=== PATIENT | male | born 1945 | race Caucasian/White ===

== ENCOUNTER → 2016-08-28 | Outpatient (CLI) | payer OTHER ==
[~2016-08-28] MED LIST: CLON1TAB3 PO; DILT360C16 PO; METO25TA62 PO
[2016-08-28 15:52] LABS: INR 3.3 (0.7-1.3); Prothrombin Time 39.7 sec (9.0-12.0)
== END | disposition home or self-care (01) ==
LOC: EDSTATUS 09:51 → XYW 09:52
PROVIDERS: ATTEND Family Medicine
DX: I08.3 Combined rheumatic disorders of mitral, aortic and tricuspid valves (principal)
CPT/HCPCS: 85610; 93306

== ENCOUNTER → 2016-11-29 | Outpatient (CLI) | payer OTHER, MEDICARE ==
[2016-11-29 09:48] LABS: Basophils # (auto) 0 uL; Basophils % (auto) 0.2 % (0.0-2.0); CONDITION Y; Eosinophils # (auto) 0.1 uL; Eosinophils % (auto) 1.2 % (0.0-7.0); Lymphocytes # (auto) 1.3 uL; Lymphocytes % (auto) 10.7 % (10.0-50.0); Mean Corpuscular Hemoglobin 29.7 pg (28.0-32.0); Mean Corpuscular Volume 87.2 fL (80.0-100.0); Mean Platelet Volume 7.9 fL (7.4-10.4); Monocytes # (auto) 0.6 uL; Monocytes % (auto) 4.9 % (0.0-12.0); Platelet Count (auto) 438 10^3/uL (140-450); Red Cell Distribution Width 16.8 % (11.6-16.0)
[2016-11-29 09:53] LABS: Urine Bilirubin Negative (Negative); Urine Blood Negative /uL (Negative); Urine Color Yellow (Yellow); Urine Glucose Normal (Normal); Urine Ketone Negative (Negative); Urine Nitrite Negative (Negative); Urine RBC <1 /hpf (0 - 3); Urine Urobilinogen Normal (Negative)
[2016-11-29 10:27] LABS: BUN/Creatinine Ratio 19.2; Bilirubin, Total 1.8 mg/dL (0.2-1.0); Potassium 4.3 mmol/L (3.5-5.1); Total Protein 7.2 g/dL (6.4-8.2)
[2016-11-30 10:09] LABS: PSA Free 1.16 ng/mL; Prostate Specific Antigen 6.7 ng/mL (0.0-4.0)
== END | disposition home or self-care (01) ==
LOC: LAB 09:27
PROVIDERS: ATTEND Family Medicine
DX: E78.5 Hyperlipidemia, unspecified (principal); I11.0 Hypertensive heart disease with heart failure; I50.9 Heart failure, unspecified; M10.9 Gout, unspecified; E55.9 Vitamin D deficiency, unspecified; I48.91 Unspecified atrial fibrillation
CPT/HCPCS: 36415; 80053; 80061; 81001; 82306; 84153; 84154; 84550; 85025

== ENCOUNTER → 2017-02-14 | Outpatient (CLI) | payer OTHER ==
[2017-02-15 08:06] LABS: PSA Free 1.05 ng/mL; Prostate Specific Antigen 6.1 ng/mL (0.0-4.0)
== END | disposition home or self-care (01) ==
LOC: LAB 10:40
PROVIDERS: ATTEND Urology
DX: I10 Essential (primary) hypertension (principal); R97.20 Elevated prostate specific antigen [PSA]
CPT/HCPCS: 84153; 84154

== ENCOUNTER → 2017-09-19 | Outpatient (CLI) | payer OTHER | END | disposition home or self-care (01) | LOC: LAB 09:29 | PROVIDERS: ATTEND Urology | DX: R97.20 Elevated prostate specific antigen [PSA] (principal); R35.1 Nocturia | CPT/HCPCS: 84153; 84154 ==

== ENCOUNTER → 2017-11-18 | Outpatient (CLI) | payer OTHER ==
[~2017-11-18] MED LIST changes: +ASPI325T4 PO; -CLON1TAB3 PO; +CLON1TAB4 PO; +FEBU40TA PO; +GLUC750T29 PO; +METO-169 PO
[2017-11-18 11:30] LABS: Prothrombin Time 10.7 sec (9.27-12.13)
[2017-11-18 13:04] LABS: BUN/Creatinine Ratio 21.5; Bilirubin, Total 1.7 mg/dL (0.2-1.0); Calcium 9.1 mg/dL (8.5-10.1); Potassium 4.7 mmol/L (3.5-5.1); Total Protein 7.9 g/dL (6.4-8.2)
[2017-11-18 13:45] LABS: Basophils # (auto) 0.2 uL; Basophils % (auto) 1.9 % (0.0-2.0); Eosinophils # (auto) 0.1 uL; Hematocrit 46.7 % (41.0-53.0); Lymphocytes # (auto) 1.1 uL; Lymphocytes % (auto) 8.7 % (10.0-50.0); Mean Corpuscular Hemoglobin 29.8 pg (28.0-32.0); Mean Corpuscular Hgb Conc. 34.2 g/dL (32.0-36.0); Mean Corpuscular Volume 87.2 fL (80.0-100.0); Monocytes # (auto) 1.2 uL; Monocytes % (auto) 9.6 % (0.0-12.0); Neutrophils # (auto) 10.1 uL; Neutrophils % (auto) 78.8 % (37.0-80.0); Nucleated Red Blood Cells % 0.1 %; Platelet Count (auto) 354 10^3/uL (140-450); Red Blood Cells 5.36 10^6/uL (4.5-5.90); Red Cell Distribution Width 16.4 % (11.8-14.3); White Blood Cell 12.8 10^3/uL (4.4-10.8)
== END | disposition home or self-care (01) ==
LOC: LAB 10:16
PROVIDERS: ATTEND Internal Medicine Cardiovascular Disease
DX: Z01.812 Encounter for preprocedural laboratory examination (principal); R00.1 Bradycardia, unspecified; Z88.2 Allergy status to sulfonamides
CPT/HCPCS: 36415; 80053; 85025; 85610; 85730

== ENCOUNTER → 2017-11-25 | Outpatient (CLI) | payer OTHER ==
[~2017-11-25] MED LIST changes: -METO25TA62 PO
[2017-11-25 10:21] LABS: Basophils # (auto) 0.3 uL; Basophils % (auto) 2.6 % (0.0-2.0); Eosinophils # (auto) 0.2 uL; Eosinophils % (auto) 1.4 % (0.0-7.0); Hematocrit 43.8 % (41.0-53.0); Hemoglobin 14.9 g/dL (13.5-17.5); Lymphocytes # (auto) 1.4 uL; Lymphocytes % (auto) 12.6 % (10.0-50.0); Mean Corpuscular Hemoglobin 29.4 pg (28.0-32.0); Mean Corpuscular Hgb Conc. 34.1 g/dL (32.0-36.0); Mean Corpuscular Volume 86.2 fL (80.0-100.0); Monocytes # (auto) 0.8 uL; Monocytes % (auto) 7.3 % (0.0-12.0); Neutrophils # (auto) 8.6 uL; Neutrophils % (auto) 76.1 % (37.0-80.0); Nucleated Red Blood Cells % 0.4 %; Platelet Count (auto) 409 10^3/uL (140-450); Red Blood Cells 5.08 10^6/uL (4.5-5.90); Red Cell Distribution Width 16.5 % (11.8-14.3); Urine Bacteria NONE SEEN /hpf (None Seen); Urine Blood Negative /uL (Negative); Urine Specific Gravity 1.007 (1.001-1.035); Urine WBC <1 /hpf (0 - 3); White Blood Cell 11.3 10^3/uL (4.4-10.8)
[2017-11-25 10:31] LABS: INR 1.07 (0.9-1.15); Partial Thromboplastin Time 29.1 sec (23.78-33.04); Prothrombin Time 11.4 sec (9.27-12.13)
[2017-11-25 10:52] LABS: Albumin 3.7 g/dL (3.4-5.0); BUN/Creatinine Ratio 14.6; Calcium 8.7 mg/dL (8.5-10.1); Potassium 4.9 mmol/L (3.5-5.1)
== END | disposition home or self-care (01) ==
LOC: LAB 09:18
PROVIDERS: ATTEND Internal Medicine Cardiovascular Disease
DX: Z01.812 Encounter for preprocedural laboratory examination (principal); R00.1 Bradycardia, unspecified; Z88.2 Allergy status to sulfonamides
CPT/HCPCS: 36415; 80053; 81001; 85025; 85610; 85730

== ENCOUNTER → 2017-12-03 | Outpatient (CLI) | payer OTHER ==
[2017-12-03 13:24] LABS: Eosinophils # (auto) 0.2 uL; Mean Corpuscular Volume 87.1 fL (80.0-100.0)
[2017-12-03 13:26] LABS: Basophils # (auto) 0.1 uL; Basophils % (auto) 0.4 % (0.0-2.0); Eosinophils % (auto) 1.4 % (0.0-7.0); Hematocrit 44.5 % (41.0-53.0); Hemoglobin 15.1 g/dL (13.5-17.5); Lymphocytes # (auto) 1.2 uL; Lymphocytes % (auto) 9.4 % (10.0-50.0); Mean Corpuscular Hemoglobin 29.6 pg (28.0-32.0); Mean Corpuscular Hgb Conc. 33.9 g/dL (32.0-36.0); Monocytes # (auto) 1.2 uL; Monocytes % (auto) 9.5 % (0.0-12.0); Neutrophils # (auto) 10.2 uL; Neutrophils % (auto) 79.3 % (37.0-80.0); Nucleated Red Blood Cells % 0.7 %; Platelet Count (auto) 519 10^3/uL (140-450); Red Blood Cells 5.11 10^6/uL (4.5-5.90); Red Cell Distribution Width 16.7 % (11.8-14.3); White Blood Cell 12.8 10^3/uL (4.4-10.8)
[2017-12-03 13:31] LABS: Urine Bacteria NONE SEEN /hpf (None Seen); Urine Blood Negative /uL (Negative); Urine Mucus FEW (None Seen); Urine Specific Gravity 1.008 (1.001-1.035); Urine WBC 1 /hpf (0 - 3)
[2017-12-03 14:30] LABS: Albumin 3.8 g/dL (3.4-5.0); BUN/Creatinine Ratio 16.8; Bilirubin, Total 1.2 mg/dL (0.2-1.0); Calcium 8.5 mg/dL (8.5-10.1); Potassium 4.3 mmol/L (3.5-5.1); Total Protein 7.4 g/dL (6.4-8.2)
== END | disposition home or self-care (01) ==
LOC: LAB 13:07
PROVIDERS: ATTEND Nurse Practitioner
DX: I48.2 Chronic atrial fibrillation (principal); I10 Essential (primary) hypertension; M10.9 Gout, unspecified; Z79.82 Long term (current) use of aspirin; Z79.899 Other long term (current) drug therapy
CPT/HCPCS: 36415; 80053; 81001; 84153; 84154; 85025

== ENCOUNTER → 2018-02-12 | Outpatient (CLI) | payer OTHER ==
[2018-02-12 12:06] LABS: Basophils # (auto) 0.2 uL; Basophils % (auto) 2.3 % (0.0-2.0); Eosinophils # (auto) 0.1 uL; Eosinophils % (auto) 1.1 % (0.0-7.0); Hematocrit 46.3 % (41.0-53.0); Lymphocytes # (auto) 1.2 uL; Lymphocytes % (auto) 12.8 % (10.0-50.0); Mean Corpuscular Hgb Conc. 34.5 g/dL (32.0-36.0); Mean Corpuscular Volume 86.8 fL (80.0-100.0); Monocytes # (auto) 0.8 uL; Monocytes % (auto) 8.6 % (0.0-12.0); Neutrophils # (auto) 6.8 uL; Neutrophils % (auto) 75.2 % (37.0-80.0); Nucleated Red Blood Cells % 0.6 %; Platelet Count (auto) 323 10^3/uL (140-450); Red Blood Cells 5.33 10^6/uL (4.5-5.90); Red Cell Distribution Width 16.9 % (11.8-14.3); White Blood Cell 9.1 10^3/uL (4.4-10.8)
[2018-02-12 12:16] LABS: Urine Bacteria NONE SEEN /hpf (None Seen); Urine Blood Negative /uL (Negative); Urine Specific Gravity 1.009 (1.001-1.035); Urine WBC 1 /hpf (0 - 3)
[2018-02-12 18:29] LABS: Potassium 4.6 mmol/L (3.5-5.1)
[2018-02-12 18:42] LABS: Albumin 4.1 g/dL (3.4-5.0); BUN/Creatinine Ratio 14.9; Bilirubin, Total 1.6 mg/dL (0.2-1.0); Calcium 9.1 mg/dL (8.5-10.1); Total Protein 7.3 g/dL (6.4-8.2); Uric Acid 9.7 mg/dL (3.5-7.2)
== END | disposition home or self-care (01) ==
LOC: LAB 10:12
PROVIDERS: ATTEND Internal Medicine
DX: I10 Essential (primary) hypertension (principal); I48.2 Chronic atrial fibrillation; R97.20 Elevated prostate specific antigen [PSA]
CPT/HCPCS: 36415; 80053; 80061; 81001; 83036; 84439; 84443; 84550; 85025

== ENCOUNTER → 2018-04-07 | Outpatient (CLI) | payer OTHER ==
[2018-04-07 14:41] LABS: BUN/Creatinine Ratio 20.3; Calcium 8.3 mg/dL (8.5-10.1); Potassium 4.4 mmol/L (3.5-5.1)
== END | disposition home or self-care (01) ==
LOC: LAB 13:07
PROVIDERS: ATTEND Internal Medicine
DX: I10 Essential (primary) hypertension (principal); R97.20 Elevated prostate specific antigen [PSA]; N17.9 Acute kidney failure, unspecified
CPT/HCPCS: 36415; 80048

== ENCOUNTER → 2018-07-04 | Outpatient (CLI) | payer OTHER ==
[2018-07-04 16:33] LABS: Eosinophils # (auto) 0.2 uL; Lymphocytes # (auto) 1.5 uL; Red Blood Cells 4.97 10^6/uL (4.5-5.90)
[2018-07-04 16:34] LABS: Basophils # (auto) 0.6 uL; Eosinophils % (auto) 1.1 % (0.0-7.0); Hemoglobin 13.9 g/dL (13.5-17.5); Mean Corpuscular Hgb Conc. 32.3 g/dL (32.0-36.0); Mean Corpuscular Volume 86.6 fL (80.0-100.0); Monocytes % (auto) 10.8 % (0.0-12.0); Neutrophils # (auto) 14.4 uL; Neutrophils % (auto) 77.1 % (37.0-80.0); Red Cell Distribution Width 18.7 % (11.8-14.3); White Blood Cell 18.7 10^3/uL (4.4-10.8)
[2018-07-04 16:37] LABS: Albumin 3.4 g/dL (3.4-5.0); Calcium 8.7 mg/dL (8.5-10.1); Potassium 4.1 mmol/L (3.5-5.1)
[2018-07-04 16:41] LABS: Bilirubin, Total 1.4 mg/dL (0.2-1.0); Total Protein 6.4 g/dL (6.4-8.2)
[2018-07-07 10:31] LABS: Platelet Count (auto) 1361 10^3/uL (140-450)
[2018-07-07 15:23] LABS: Basophils % (manual) 0 (0.0-2.0); Blast Cells 0; Eosinophils % (manual) 0 (0-7); Metamyelocytes % 0; Myelocytes % 0; Promyelocytes % 0; Reactive Lymphocytes 0
[2018-07-07 17:19] LABS: Band Neutrophils % (manual) 5; Lymphocytes % (manual) 9 (10.0-50.0); Monocytes % (manual) 8 (0-12)
== END | disposition home or self-care (01) ==
LOC: LAB 15:31
PROVIDERS: ATTEND Nurse Practitioner
DX: E78.5 Hyperlipidemia, unspecified (principal)
CPT/HCPCS: 36415; 80053; 80061; 82270; 83036; 84153; 84154; 84443; 85025

== ENCOUNTER → 2018-07-23 | Outpatient (CLI) | payer OTHER ==
[~2018-07-23] MED LIST changes: +FURO20TA PO
[2018-07-23 14:58] LABS: Eosinophils # (auto) 0.2 uL; Eosinophils % (auto) 1.6 % (0.0-7.0); White Blood Cell 11.5 10^3/uL (4.4-10.8)
[2018-07-23 15:00] LABS: Basophils # (auto) 0.5 uL; Basophils % (auto) 4.2 % (0.0-2.0); Hematocrit 45.7 % (41.0-53.0); Lymphocytes % (auto) 8.8 % (10.0-50.0); Mean Corpuscular Hemoglobin 27.6 pg (28.0-32.0); Mean Corpuscular Hgb Conc. 32.8 g/dL (32.0-36.0); Mean Corpuscular Volume 84.1 fL (80.0-100.0); Neutrophils # (auto) 8.8 uL; Neutrophils % (auto) 76.4 % (37.0-80.0); Red Blood Cells 5.44 10^6/uL (4.5-5.90); Red Cell Distribution Width 19.2 % (11.8-14.3)
[2018-07-23 15:29] LABS: Potassium 4.3 mmol/L (3.5-5.1)
[2018-07-23 15:32] LABS: BUN/Creatinine Ratio 23.5; Bilirubin, Total 1.1 mg/dL (0.2-1.0); Total Protein 7.8 g/dL (6.4-8.2)
[2018-07-23 16:13] LABS: Platelet Count (auto) 905 10^3/uL (140-450)
== END | disposition home or self-care (01) ==
LOC: LAB 14:27
PROVIDERS: ATTEND Internal Medicine
DX: D72.829 Elevated white blood cell count, unspecified (principal); D69.59 Other secondary thrombocytopenia
CPT/HCPCS: 36415; 80053; 83615; 84153; 84154; 85025

== ENCOUNTER → 2018-08-08 | Outpatient (CLI) | payer OTHER ==
[2018-08-08 13:46] LABS: Hematocrit 42.2 % (41.0-53.0); Mean Corpuscular Hemoglobin 27.6 pg (28.0-32.0); Mean Corpuscular Hgb Conc. 33.1 g/dL (32.0-36.0); Mean Corpuscular Volume 83.2 fL (80.0-100.0); Platelet Count (auto) 641 10^3/uL (140-450); Red Blood Cells 5.07 10^6/uL (4.5-5.90); White Blood Cell 13.8 10^3/uL (4.4-10.8)
[2018-08-08 13:57] LABS: Band Neutrophils % (manual) 0; Basophils % (manual) 0 (0.0-2.0); Blast Cells 0; Eosinophils % (manual) 0 (0-7); Metamyelocytes % 0; Myelocytes % 0; Promyelocytes % 0; Reactive Lymphocytes 0; Red Cell Distribution Width 20.2 % (11.8-14.3)
[2018-08-08 14:31] LABS: BUN/Creatinine Ratio 25.2; Calcium 9.1 mg/dL (8.5-10.1); Potassium 4.2 mmol/L (3.5-5.1)
[2018-08-08 18:21] LABS: Lymphocytes % (manual) 11 (10.0-50.0); Monocytes % (manual) 5 (0-12)
== END | disposition home or self-care (01) ==
LOC: LAB 13:29
PROVIDERS: ATTEND Internal Medicine
DX: I48.2 Chronic atrial fibrillation (principal); I11.0 Hypertensive heart disease with heart failure; I50.9 Heart failure, unspecified; M10.9 Gout, unspecified
CPT/HCPCS: 36415; 80048; 83880; 84153; 84154; 85007; 85027

== ENCOUNTER → 2018-08-27 | Outpatient (CLI) | payer OTHER ==
[2018-08-27 10:25] LABS: Eosinophils # (auto) 0.2 uL; Monocytes # (auto) 0.9 uL; Monocytes % (auto) 9.9 % (0.0-12.0); Nucleated Red Blood Cells % 0.4 %; White Blood Cell 9.1 10^3/uL (4.4-10.8)
[2018-08-27 10:30] LABS: Basophils # (auto) 0.1 uL; Basophils % (auto) 1.5 % (0.0-2.0); Eosinophils % (auto) 2.2 % (0.0-7.0); Hematocrit 39.2 % (41.0-53.0); Hemoglobin 12.9 g/dL (13.5-17.5); Lymphocytes # (auto) 0.9 uL; Lymphocytes % (auto) 10.2 % (10.0-50.0); Mean Corpuscular Hemoglobin 27.4 pg (28.0-32.0); Mean Corpuscular Hgb Conc. 32.8 g/dL (32.0-36.0); Mean Corpuscular Volume 83.6 fL (80.0-100.0); Neutrophils # (auto) 6.9 uL; Neutrophils % (auto) 76.2 % (37.0-80.0); Platelet Count (auto) 628 10^3/uL (140-450)
[2018-08-27 10:44] LABS: Red Cell Distribution Width 20.4 % (11.8-14.3)
[2018-08-27 11:45] LABS: Albumin 3.6 g/dL (3.4-5.0); Potassium 4.7 mmol/L (3.5-5.1)
[2018-08-27 11:58] LABS: BUN/Creatinine Ratio 23.3; Bilirubin, Total 1.5 mg/dL (0.2-1.0); Total Protein 6.6 g/dL (6.4-8.2)
== END | disposition home or self-care (01) ==
LOC: LAB 09:33
PROVIDERS: ATTEND Internal Medicine
DX: I11.0 Hypertensive heart disease with heart failure (principal); I50.9 Heart failure, unspecified; E55.9 Vitamin D deficiency, unspecified
CPT/HCPCS: 36415; 80053; 83615; 83880; 84153; 84154; 85025

== ENCOUNTER → 2018-09-30 | Outpatient (CLI) | payer OTHER ==
[~2018-09-30] VITALS: Ht 195.6 cm; Wt 66.7 kg
[~2018-09-30] MED LIST changes: +ADENOSINE 56 MG in GIVE UN-DILUTED 0 ML IV STA
[2018-09-30 09:30] VITALS: BP 168/86
== END | disposition home or self-care (01) ==
LOC: XY 07:36
PROVIDERS: ATTEND Internal Medicine
DX: I11.0 Hypertensive heart disease with heart failure (principal); I50.9 Heart failure, unspecified; I48.91 Unspecified atrial fibrillation
CPT/HCPCS: 78452; 93017; A9500; J0153

== ENCOUNTER → 2018-11-06 | Outpatient (CLI) | payer OTHER ==
[~2018-11-06] MED LIST changes: -ADENOSINE 56 MG in GIVE UN-DILUTED 0 ML IV STA; +CLON1TAB10 PO; -CLON1TAB4 PO; +FURO1TAB33 PO; -FURO20TA PO
[2018-11-06 10:01] LABS: Eosinophils # (auto) 0.2 uL; Eosinophils % (auto) 1.4 % (0.0-7.0); Hematocrit 40.5 % (41.0-53.0); Lymphocytes # (auto) 1.3 uL; White Blood Cell 12.6 10^3/uL (4.4-10.8)
[2018-11-06 10:05] LABS: Basophils # (auto) 0.3 uL; Basophils % (auto) 2.6 % (0.0-2.0); Hemoglobin 13.1 g/dL (13.5-17.5); Lymphocytes % (auto) 10.3 % (10.0-50.0); Mean Corpuscular Hemoglobin 27.1 pg (28.0-32.0); Mean Corpuscular Hgb Conc. 32.3 g/dL (32.0-36.0); Mean Corpuscular Volume 83.7 fL (80.0-100.0); Monocytes # (auto) 1.1 uL; Neutrophils # (auto) 9.6 uL; Neutrophils % (auto) 76.7 % (37.0-80.0); Nucleated Red Blood Cells % 0.1 %; Red Blood Cells 4.84 10^6/uL (4.5-5.90)
[2018-11-06 10:12] LABS: Albumin 3.7 g/dL (3.4-5.0); Potassium 4.8 mmol/L (3.5-5.1); Red Cell Distribution Width 21.1 % (11.8-14.3)
[2018-11-06 10:22] LABS: BUN/Creatinine Ratio 18.2; Bilirubin, Total 1.7 mg/dL (0.2-1.0); Calcium 8.8 mg/dL (8.5-10.1); Total Protein 6.9 g/dL (6.4-8.2)
[2018-11-06 13:37] LABS: Platelet Count (auto) 791 10^3/uL (140-450)
== END | disposition home or self-care (01) ==
LOC: LAB 09:34
PROVIDERS: ATTEND Internal Medicine
DX: R56.9 Unspecified convulsions (principal); I11.0 Hypertensive heart disease with heart failure; I50.9 Heart failure, unspecified
CPT/HCPCS: 36415; 80053; 80061; 84153; 84154; 85025

== ENCOUNTER → 2019-01-26 | Outpatient (CLI) | payer OTHER ==
[2019-01-26 11:21] LABS: Basophils # (auto) 0.2 uL; Eosinophils # (auto) 0.1 uL; Eosinophils % (auto) 0.5 % (0.0-7.0); Hemoglobin 11.6 g/dL (13.5-17.5)
[2019-01-26 11:23] LABS: Basophils % (auto) 1.3 % (0.0-2.0); Hematocrit 35.8 % (41.0-53.0); Lymphocytes # (auto) 1.4 uL; Lymphocytes % (auto) 8.1 % (10.0-50.0); Mean Corpuscular Hemoglobin 26.1 pg (28.0-32.0); Mean Corpuscular Hgb Conc. 32.4 g/dL (32.0-36.0); Mean Corpuscular Volume 80.7 fL (80.0-100.0); Monocytes % (auto) 11.8 % (0.0-12.0); Neutrophils # (auto) 13.2 uL; Neutrophils % (auto) 78.3 % (37.0-80.0); Nucleated Red Blood Cells % 0.6 %; Red Blood Cells 4.44 10^6/uL (4.5-5.90); White Blood Cell 16.8 10^3/uL (4.4-10.8)
[2019-01-26 11:35] LABS: Albumin 3.6 g/dL (3.4-5.0); Calcium 8.4 mg/dL (8.5-10.1); Potassium 4.5 mmol/L (3.5-5.1)
[2019-01-26 11:37] LABS: BUN/Creatinine Ratio 20.7; Bilirubin, Total 1.9 mg/dL (0.2-1.0); Total Protein 6.7 g/dL (6.4-8.2)
[2019-01-26 11:40] LABS: Platelet Count (auto) 1050 10^3/uL (140-450)
== END | disposition home or self-care (01) ==
LOC: LAB 10:10
PROVIDERS: ATTEND Internal Medicine
DX: D47.3 Essential (hemorrhagic) thrombocythemia (principal); M10.9 Gout, unspecified; I10 Essential (primary) hypertension
CPT/HCPCS: 36415; 80053; 84153; 84154; 85025

== ENCOUNTER → 2019-02-06 | Outpatient (CLI) | payer OTHER ==
[2019-02-06 11:46] LABS: Basophils # (auto) 0.1 uL; Eosinophils # (auto) 0.2 uL; Hemoglobin 11.4 g/dL (13.5-17.5)
[2019-02-06 11:49] LABS: Basophils % (auto) 0.7 % (0.0-2.0); Eosinophils % (auto) 1.5 % (0.0-7.0); Hematocrit 35.7 % (41.0-53.0); Lymphocytes # (auto) 1.4 uL; Lymphocytes % (auto) 9.5 % (10.0-50.0); Mean Corpuscular Hemoglobin 25.4 pg (28.0-32.0); Mean Corpuscular Hgb Conc. 32.1 g/dL (32.0-36.0); Mean Corpuscular Volume 79.2 fL (80.0-100.0); Monocytes # (auto) 1.5 uL; Monocytes % (auto) 10.2 % (0.0-12.0); Neutrophils # (auto) 11.8 uL; Neutrophils % (auto) 78.1 % (37.0-80.0); White Blood Cell 15.2 10^3/uL (4.4-10.8)
[2019-02-06 13:24] LABS: Red Cell Distribution Width 22.1 % (11.8-14.3)
[2019-02-06 13:25] LABS: Platelet Count (auto) 1149 10^3/uL (140-450)
== END | disposition home or self-care (01) ==
LOC: LAB 11:39
PROVIDERS: ATTEND Internal Medicine
DX: D47.3 Essential (hemorrhagic) thrombocythemia (principal); I50.9 Heart failure, unspecified; I25.10 Atherosclerotic heart disease of native coronary artery without angina pectoris; Z98.890 Other specified postprocedural states
CPT/HCPCS: 36415; 85025

== ENCOUNTER → 2019-03-02 | Outpatient (CLI) | payer OTHER, MEDICARE ==
[2019-03-02 12:55] LABS: Hematocrit 34.8 % (41.0-53.0); Mean Corpuscular Hemoglobin 24.8 pg (28.0-32.0); Mean Corpuscular Hgb Conc. 31.6 g/dL (32.0-36.0); Mean Corpuscular Volume 78.4 fL (80.0-100.0); Red Blood Cells 4.44 10^6/uL (4.5-5.90); White Blood Cell 12.7 10^3/uL (4.4-10.8)
[2019-03-02 13:39] LABS: Red Cell Distribution Width 23.5 % (11.8-14.3)
[2019-03-02 13:41] LABS: Platelet Count (auto) 940 10^3/uL (140-450)
[2019-03-02 13:42] LABS: Basophils % (manual) 0 (0.0-2.0); Blast Cells 0; Myelocytes % 0; Promyelocytes % 0; Reactive Lymphocytes 0
[2019-03-02 13:54] LABS: Albumin 3.4 g/dL (3.4-5.0); Calcium 8.2 mg/dL (8.5-10.1); Potassium 4.2 mmol/L (3.5-5.1)
[2019-03-02 13:58] LABS: BUN/Creatinine Ratio 22.9; Bilirubin, Total 1.5 mg/dL (0.2-1.0); Total Protein 6.4 g/dL (6.4-8.2)
[2019-03-02 20:54] LABS: Band Neutrophils % (manual) 4; Eosinophils % (manual) 1 (0-7); Lymphocytes % (manual) 15 (10.0-50.0); Metamyelocytes % 1; Monocytes % (manual) 10 (0-12)
== END | disposition home or self-care (01) ==
LOC: LAB 12:29
PROVIDERS: ATTEND Internal Medicine
DX: D47.3 Essential (hemorrhagic) thrombocythemia (principal)
CPT/HCPCS: 36415; 80053; 83615; 84153; 84154; 85007; 85027

== ENCOUNTER → 2019-03-05 | Outpatient (CLI) | payer OTHER ==
[2019-03-05 12:40] LABS: Basophils # (auto) 0.2 uL; Eosinophils # (auto) 0.2 uL; Lymphocytes # (auto) 0.8 uL; Nucleated Red Blood Cells % 0.1 %; White Blood Cell 16.2 10^3/uL (4.4-10.8)
[2019-03-05 12:42] LABS: Basophils % (auto) 1.3 % (0.0-2.0); Eosinophils % (auto) 1.1 % (0.0-7.0); Hematocrit 35.1 % (41.0-53.0); Hemoglobin 11.3 g/dL (13.5-17.5); Lymphocytes % (auto) 5.1 % (10.0-50.0); Mean Corpuscular Hemoglobin 25.5 pg (28.0-32.0); Mean Corpuscular Hgb Conc. 32.3 g/dL (32.0-36.0); Mean Corpuscular Volume 78.9 fL (80.0-100.0); Monocytes # (auto) 2.2 uL; Monocytes % (auto) 13.7 % (0.0-12.0); Neutrophils # (auto) 12.8 uL; Neutrophils % (auto) 78.8 % (37.0-80.0); Red Blood Cells 4.45 10^6/uL (4.5-5.90)
[2019-03-05 12:53] LABS: Red Cell Distribution Width 23.7 % (11.8-14.3)
[2019-03-05 12:55] LABS: Platelet Count (auto) 966 10^3/uL (140-450)
[2019-03-05 13:45] LABS: Potassium 4.5 mmol/L (3.5-5.1)
[2019-03-05 13:50] LABS: Albumin 3.6 g/dL (3.4-5.0); BUN/Creatinine Ratio 17.8; Bilirubin, Total 1.9 mg/dL (0.2-1.0); Calcium 8.5 mg/dL (8.5-10.1); Total Protein 6.8 g/dL (6.4-8.2)
== END | disposition home or self-care (01) ==
LOC: LAB 11:58
PROVIDERS: ATTEND Internal Medicine
DX: D47.3 Essential (hemorrhagic) thrombocythemia (principal)
CPT/HCPCS: 36415; 80053; 81206; 81207; 83615; 83880; 85025

== ENCOUNTER → 2019-03-17 | Outpatient (CLI) | payer OTHER ==
[2019-03-17 12:10] LABS: Mean Corpuscular Volume 77.8 fL (80.0-100.0); Monocytes # (auto) 1.9 uL; Nucleated Red Blood Cells % 0.1 %
[2019-03-17 12:14] LABS: Basophils # (auto) 0.4 uL; Basophils % (auto) 2.4 % (0.0-2.0); Eosinophils # (auto) 0.2 uL; Eosinophils % (auto) 1.4 % (0.0-7.0); Hematocrit 34.2 % (41.0-53.0); Hemoglobin 10.6 g/dL (13.5-17.5); Lymphocytes # (auto) 1.2 uL; Lymphocytes % (auto) 7.2 % (10.0-50.0); Mean Corpuscular Hemoglobin 24.1 pg (28.0-32.0); Monocytes % (auto) 11.4 % (0.0-12.0); Neutrophils # (auto) 12.7 uL; Neutrophils % (auto) 77.6 % (37.0-80.0); Red Blood Cells 4.39 10^6/uL (4.5-5.90); White Blood Cell 16.4 10^3/uL (4.4-10.8)
[2019-03-17 13:04] LABS: Red Cell Distribution Width 23.7 % (11.8-14.3)
[2019-03-17 13:06] LABS: Platelet Count (auto) 1414 10^3/uL (140-450)
== END | disposition home or self-care (01) ==
LOC: LAB 11:34
PROVIDERS: ATTEND Internal Medicine
DX: D72.829 Elevated white blood cell count, unspecified (principal); D47.3 Essential (hemorrhagic) thrombocythemia
CPT/HCPCS: 36415; 85025

== ENCOUNTER 2019-03-19 10:58 | Inpatient (IN) | payer MEDICARE, OTHER ==
[~2019-03-19] VITALS: Ht 162.6 cm; Wt 71.9 kg
[2019-03-19] MEDS ORDERED: FUROSEMIDE 40 MG/4 ML VIAL IV ONE (11:15)
[2019-03-19 12:13] LABS: Eosinophils # (auto) 0.2 uL
[2019-03-19 12:14] LABS: Basophils # (auto) 0.3 uL; Basophils % (auto) 1.4 % (0.0-2.0); Eosinophils % (auto) 0.9 % (0.0-7.0); Hematocrit 33.3 % (41.0-53.0); Hemoglobin 10.6 g/dL (13.5-17.5); Lymphocytes # (auto) 1.2 uL; Lymphocytes % (auto) 5.6 % (10.0-50.0); Mean Corpuscular Hemoglobin 24.6 pg (28.0-32.0); Mean Corpuscular Hgb Conc. 31.9 g/dL (32.0-36.0); Mean Corpuscular Volume 77.1 fL (80.0-100.0); Monocytes # (auto) 1.9 uL; Monocytes % (auto) 9.1 % (0.0-12.0); Neutrophils # (auto) 17.6 uL; Nucleated Red Blood Cells % 0.3 %; Red Blood Cells 4.32 10^6/uL (4.5-5.90); White Blood Cell 21.2 10^3/uL (4.4-10.8)
[2019-03-19 12:26] LABS: Red Cell Distribution Width 23.7 % (11.8-14.3)
[2019-03-19 12:28] LABS: Platelet Count (auto) 1534 10^3/uL (140-450)
[2019-03-19 12:57] LABS: Albumin 3.4 g/dL (3.4-5.0); Anion Gap 8 (5-15); Blood Urea Nitrogen 28 mg/dL (7-18); Calcium 8.2 mg/dL (8.5-10.1); Carbon Dioxide 24 mmol/L (21-32); Chloride 105 mmol/L (98-107); Glucose 128 mg/dL (74-106); Magnesium 2.3 mg/dL (1.6-2.6); Potassium 3.9 mmol/L (3.5-5.1); Sodium 137 mmol/L (136-145)
[2019-03-19] MEDS ORDERED: AMIODARONE HCL 150 MG in D5W 5% 100 ML IV ONE (13:00)
[2019-03-19] MEDS ORDERED: AMIODARONE HCL 900 MG in DEXTROSE 500 ML IV SCH ×2 (13:01→19:01)
[2019-03-19 13:04] LABS: Alanine Aminotransferase 37 U/L (16-61); Alkaline Phosphatase 121 U/L (45-117); Aspartate Aminotransferase 53 U/L (15-37); BUN/Creatinine Ratio 17.9; Bilirubin, Total 2.1 mg/dL (0.2-1.0); GFR African American 56 mL/min; GFR Non-African American 47 mL/min; Total Protein 6.6 g/dL (6.4-8.2)
[2019-03-19] MEDS ORDERED: MORPHINE SULFATE 4 MG/ML SYR/VIAL IV PRN (13:30)
[2019-03-19] MEDS ORDERED: LACTULOSE 20Gm/30ML SOLN PO PRN (13:30)
[2019-03-19] MEDS ORDERED: DEXTROSE (50%) 50ML SYRG IV PRN (13:30)
[2019-03-19] MEDS ORDERED: ACETAMINOPHEN 500 MG TAB PO PRN (13:30)
[2019-03-19] MEDS ORDERED: cefTRIAXone 1GM/50ML D5W 50 ML IV ONE (13:30)
[2019-03-19] MEDS ORDERED: TEMAZEPAM 15 MG CAP PO PRN (13:30)
[2019-03-19] MEDS ORDERED: MORPHINE SULF INJ 2 MG/ML SYRINGE 1ML IV PRN (13:30)
[2019-03-19] MEDS ORDERED: traMADol HCL 50 MG TAB PO PRN (13:30)
[2019-03-19] MEDS ORDERED: NITROGLYCERIN 0.4 MG SL TAB SL PRN (13:30)
[2019-03-19] MEDS: SODIUM CHLOR 0.9% PF (SALINE LOCK) 10ML VIAL/SYR IV SCH ×2 (14:11→22:00)
[2019-03-19] MEDS: CLINDAMYCIN 600MG IV 50 ML IV SCH ×2 (14:57→22:45)
[2019-03-19] MEDS: ACCU-CHEK COMFORT CURVE STRIP VI SCH ×2 (17:24→22:00)
[2019-03-19 21:16] LABS: INR 1.48 (0.9-1.15); Partial Thromboplastin Time 30.8 sec (23.64-32.05)
[2019-03-19 21:18] LABS: Lactic Acid w/Reflex 2.8 mmol/L (0.4-2.0)
[2019-03-19 22:03] VITALS: BP 139/115
--- NOTE | 2019-03-19 22:03 | NUR ---
INFORM PATIENT TO BRING A COPY OF ADVANCE DIRECTIVES AND LIST OF HOME MEDICATIONS.
--- NOTE | 2019-03-19 22:03 | NUR ---
Telemetry admit from ER ROHANRACIEL admitted to Telemetry unit after SBAR received. Patient oriented to ABDI CÁRDENAS, RN primary RN, unit, room, bed, and unit policies regarding patient care and visiting hours. Patient now on continuous telemetry monitoring, tele box # 36 and telemetry reading on arrival to unit is SR 70. Patient placed on bedside oxygen, weighed by bedscale and encouraged to call if they need something. All questions and concerns addressed, patient verbalized understanding. Amiodarone drip running 16.667
[2019-03-19] MEDS: clonazePAM 0.5 MG TAB PO SCH (22:45)
[2019-03-19] MEDS: METOPROLOL TARTRATE 25 MG TAB PO SCH (22:46)
[2019-03-19] MEDS: FAMOTIDINE 20 MG TAB PO SCH (22:48)
--- NOTE | 2019-03-19 23:20 | NUR ---
patient got nauseas and vomit
--- NOTE | 2019-03-20 00:10 | NUR ---
IV removal IV DC'd with clean sterile technique, catheter fully intact. Pressure dressing applied to site. Patient tolerated well.
--- NOTE | 2019-03-20 00:30 | NUR ---
IV insertion IV access obtained, via clean sterile technique by inserting 22 gauge catheter at LW after 2 attempts. IV secured properly. No trauma to site. Patient tolerated well.
--- NOTE | 2019-03-20 01:30 | NUR ---
IV insertion IV access obtained, via clean sterile technique by inserting 20 gauge catheter at 20 after 2 attempts. IV secured properly. No trauma to site. Patient tolerated well. NOTE:
[2019-03-20 05:00] VITALS: BP 125/68
[2019-03-20 06:17] LABS: Hemoglobin 10.5 g/dL (13.5-17.5)
[2019-03-20] MEDS: SODIUM CHLOR 0.9% PF (SALINE LOCK) 10ML VIAL/SYR IV SCH ×3 (06:22→21:47)
[2019-03-20] MEDS: ACCU-CHEK COMFORT CURVE STRIP VI SCH ×7 (06:22→21:48)
[2019-03-20] MEDS: CLINDAMYCIN 600MG IV 50 ML IV SCH ×3 (06:22→21:47)
[2019-03-20 06:23] LABS: Hematocrit 33.1 % (41.0-53.0); Mean Corpuscular Hemoglobin 24.4 pg (28.0-32.0); Mean Corpuscular Hgb Conc. 31.7 g/dL (32.0-36.0); Mean Corpuscular Volume 76.9 fL (80.0-100.0); White Blood Cell 18.7 10^3/uL (4.4-10.8)
[2019-03-20 06:31] LABS: Potassium 4.2 mmol/L (3.5-5.1)
[2019-03-20 06:40] LABS: Albumin 3.4 g/dL (3.4-5.0); BUN/Creatinine Ratio 19.8; Bilirubin, Total 1.9 mg/dL (0.2-1.0); Calcium 8.5 mg/dL (8.5-10.1); Total Protein 6.4 g/dL (6.4-8.2)
[2019-03-20 06:50] LABS: Red Cell Distribution Width 24.3 % (11.8-14.3)
[2019-03-20 06:52] LABS: Platelet Count (auto) 1636 10^3/uL (140-450)
[2019-03-20 06:53] LABS: Basophils % (manual) 0 (0.0-2.0); Blast Cells 0; Eosinophils % (manual) 0 (0-7); Metamyelocytes % 0; Myelocytes % 0; Promyelocytes % 0; Reactive Lymphocytes 0
--- NOTE | 2019-03-20 06:55 | NUR ---
Critical lab. Platelet count of 1636. Will page hospitalist
--- NOTE | 2019-03-20 06:59 | NUR ---
Hospitalist Shalom made aware of critical lab. He responded "okay"
--- NOTE | 2019-03-20 07:30 | NUR ---
Opening Shift Note Assumed care of patient, who is alert and oriented x4. No S/S of distress/SOB or pain. Patient currently has a Amiodarone drip set to 16.667 ml/hr. Bed in low, 2x side rails up and call light is within reach. Instructed on POC and to call for assist PRN, will continue to monitor for changes Q1hr and PRN.
[2019-03-20 08:00] VITALS: BP 113/73
[2019-03-20 08:30] VITALS: BP 113/74
[2019-03-20] MEDS ORDERED: cefTRIAXone 1GM/50ML D5W 50 ML IV SCH (09:00)
[2019-03-20 09:08] LABS: Band Neutrophils % (manual) 3; Lymphocytes % (manual) 9 (10.0-50.0); Monocytes % (manual) 14 (0-12)
[2019-03-20] MEDS: FAMOTIDINE 20 MG TAB PO SCH (09:13)
--- NOTE | 2019-03-20 09:30 | NUR ---
Scheduled blood pressure medications Patient and patient's who is at bedside are refusing scheduled medications: Lopressor 25mg PO, Enalapril 2.5mg PO. states that Dr. Lakhani is the repair technician on board and they are going to continue his home medications as he prescribed. I asked if they would like to leave home medications with our pharmacy and well will give them as scheduled. Patient's declined and does not want to leave any home medications. brought home medications and patient took Diltiazem 360mg PO, Metoprolol 50mg PO, Febuxostat 40mg PO. This nurse was not present but patient reported taking these medications. Advised and patient to please let this nurse know before they take any medications to avoid over dosing/interactions. Patient and verbalized understanding.
[2019-03-20] MEDS ORDERED: ASPirin 325 MG TAB PO SCH (10:00)
[2019-03-20] MEDS: METOPROLOL TARTRATE 25 MG TAB PO SCH ×2 (10:00→21:48)
[2019-03-20] MEDS ORDERED: INFLUENZA QUAD 2019-2020 0.5ml SYRG IM SCH (10:00)
[2019-03-20] MEDS ORDERED: FUROSEMIDE 40 MG/4 ML VIAL IV SCH (10:00)
[2019-03-20] MEDS: FEBUXOSTAT 40MG TAB PO SCH (10:00)
[2019-03-20] MEDS ORDERED: ENOXAPARIN SOD 40 MG/0.4 ML SYRINGE SC SCH (10:00)
[2019-03-20] MEDS ORDERED: POTASSIUM CHL 20 Meq TABLET PO SCH (10:00)
[2019-03-20] MEDS ORDERED: ENALAPRIL MALEATE 2.5 MG TAB PO SCH (10:00)
[2019-03-20] MEDS ORDERED: DEXTROSE (50%) 50ML SYRG IV PRN (11:00)
[2019-03-20] MEDS: InsuLIN REG 1unit/0.01ml Soln (100units/ml) SC SCH ×3 (11:30→21:48)
--- NOTE | 2019-03-20 13:45 | NUR ---
Dr. Fuentes and Dr. Andre jones Updated patient and on POC.
[2019-03-20] MEDS: HYDROXYUREA 500 MG CAP PO SCH ×2 (14:47→21:47)
[2019-03-20] MEDS ORDERED: AMIODARONE HCL 200 MG TAB PO ONE (15:15)
[2019-03-20 17:00] VITALS: BP 107/58
[2019-03-20] MEDS: SODIUM FERR GLUC 62.5MG/5ML 125 MG in SODIUM CHL 0.9% 100 ML IV SCH (17:18)
[2019-03-20] MEDS ORDERED: FUROSEMIDE 40 MG/4 ML VIAL IV ONE (17:30)
--- NOTE | 2019-03-20 19:20 | NUR ---
Called lab regarding Dr. Feuntes's communication order for BCR ABL quantitative PCR. They stated they can draw them in the morning but those are tests that are sent to [facility] for the results. They will call back around 21:30 when the next shift comes on because they are unsure how to order them in the computer. Central extension given 1658, will await call back.
[2019-03-20 21:33] VITALS: BP 127/56
[2019-03-20] MEDS: clonazePAM 0.5 MG TAB PO SCH (21:48)
[2019-03-21] MEDS: PROMETHAZINE HCL 25 MG/ML 1ML IV PRN ×2 (03:30→15:10)
[2019-03-21 05:27] VITALS: BP 121/64
[2019-03-21] MEDS: ACCU-CHEK COMFORT CURVE STRIP VI SCH ×2 (05:49)
[2019-03-21] MEDS: InsuLIN REG 1unit/0.01ml Soln (100units/ml) SC SCH (05:49)
[2019-03-21] MEDS: CLINDAMYCIN 600MG IV 50 ML IV SCH (05:49)
[2019-03-21] MEDS: SODIUM CHLOR 0.9% PF (SALINE LOCK) 10ML VIAL/SYR IV SCH (05:49)
[2019-03-21 06:51] LABS: % Iron Saturation 50.7 % (20-55)
--- NOTE | 2019-03-21 08:00 | NUR ---
Opening Shift Note Assumed care of patient, awake, alert and oriented X4. No S/S of distress/SOB or pain. Tele# 36, sinus rhythm @ 86 bpm. IV to left wrist, 20 gauge. patent and saline locked. Instructed on POC and to call for assist PRN, verbalized understanding. Bed locked, in lowest position, call light within reach, will continue to monitor for changes Q1hr and PRN.
[2019-03-21 09:00] VITALS: BP 128/68
[2019-03-21 09:29] LABS: Hemoglobin 10.4 g/dL (13.5-17.5)
[2019-03-21 09:30] LABS: Hematocrit 33.8 % (41.0-53.0); Mean Corpuscular Hemoglobin 23.8 pg (28.0-32.0); Mean Corpuscular Hgb Conc. 30.8 g/dL (32.0-36.0); Mean Corpuscular Volume 77.4 fL (80.0-100.0); Red Blood Cells 4.37 10^6/uL (4.5-5.90)
[2019-03-21 09:31] LABS: Red Cell Distribution Width 24.3 % (11.8-14.3)
[2019-03-21 09:33] LABS: Platelet Count (auto) 2031 10^3/uL (140-450); White Blood Cell 34.5 10^3/uL (4.4-10.8)
[2019-03-21 09:34] LABS: Basophils % (manual) 0 (0.0-2.0); Blast Cells 0; Eosinophils % (manual) 0 (0-7); Promyelocytes % 0; Reactive Lymphocytes 0
[2019-03-21] MEDS: FEBUXOSTAT 40MG TAB PO SCH (10:00)
[2019-03-21] MEDS ORDERED: PANTOPRAZOLE 40 MG TAB PO SCH (10:00)
[2019-03-21] MEDS ORDERED: AMIODARONE HCL 200 MG TAB PO SCH (10:00)
[2019-03-21] MEDS: METOPROLOL TARTRATE 25 MG TAB PO SCH ×2 (10:00→21:19)
--- NOTE | 2019-03-21 10:05 | NUR ---
AMA Note RACIEL MADRIGAL states they want to leave the hospital Against Medical Advice (AMA). Patient encouraged to stay for further treatment/stabilization. Dr Powell notified of patient's wishes. Patient advised of the risks and benefits of leaving AMA. Patient verbalized understanding. Patient encouraged to return to the ER if symptoms do not improve or worsen.
--- NOTE | 2019-03-21 10:45 | NUR ---
JOSÉA After speaking with Dr Powell, patient and decided to stay. Dr Powell aware.
[2019-03-21] MEDS ORDERED: APIXABAN 5 MG TAB PO SCH ×2 (11:00→22:00)
--- NOTE | 2019-03-21 11:18 | NUR ---
ROUNDS Dr Leary at bedside for rounds, new orders received and followed through. Patient and updated on plan of care, verbalized understanding.
[2019-03-21] MEDS: FAMOTIDINE 20 MG TAB PO SCH (11:20)
[2019-03-21 11:34] LABS: Albumin 3.3 g/dL (3.4-5.0); Calcium 8.5 mg/dL (8.5-10.1); Magnesium 2.2 mg/dL (1.6-2.6); Potassium 4.8 mmol/L (3.5-5.1)
[2019-03-21 11:38] LABS: BUN/Creatinine Ratio 17.7; Bilirubin, Total 2.4 mg/dL (0.2-1.0); Total Protein 6.4 g/dL (6.4-8.2)
[2019-03-21] MEDS: SODIUM FERR GLUC 62.5MG/5ML 125 MG in SODIUM CHL 0.9% 100 ML IV SCH (12:24)
[2019-03-21 13:00] VITALS: BP 120/72
[2019-03-21] MEDS: SODIUM CHLORIDE 0.9% 1,000 ML IV SCH ×2 (13:23→21:19)
[2019-03-21] MEDS: LINEZOLID 600MG TABLET PO SCH ×3 (13:23→21:16)
[2019-03-21] MEDS: ERTAPENEM SOD INJ 1 GM in SODIUM CHL 0.9% 50 ML IV ONE ×2 (13:24→14:36)
[2019-03-21] MEDS: HYDROXYUREA 500 MG CAP PO SCH ×2 (13:30→21:17)
[2019-03-21 13:51] LABS: Band Neutrophils % (manual) 6; Lymphocytes % (manual) 4 (10.0-50.0); Metamyelocytes % 2; Monocytes % (manual) 10 (0-12); Myelocytes % 2
--- NOTE | 2019-03-21 14:35 | NUR ---
NUTRITION ASSESSMENT NOTES Please refer to link notes of nutrition screen form filed under the intervention section of the plan of care for further details. Est. Needs: 1450 kcal to 1800 kcal (20-25 kcal/kgBW), 58 gms to 72 gms pro (0.8-1.0 gms/kgBW). Will continue to monitor pertinent labs and reassess nutrient need prn Thank you. Addendum: 03/21/19 at [address] Amended: Links added.
[2019-03-21 17:18] VITALS: BP 116/42
--- NOTE | 2019-03-21 18:49 | NUR ---
Lopez catheter insertion Patient assessed and determined to be in need of Lopez catheter. Order obtained from Dr Sapphire RATLIFF. Patient educated on catheter and reason for insertion. All questions answered. Lopez catheter 16 gauge Slovenian inserted with clean sterile technique. Patient tolerated well. UA and Urine culture sent.
[2019-03-21 18:55] LABS: Urine Bacteria NONE SEEN /hpf (None Seen); Urine Blood Negative /uL (Negative); Urine Hyaline Cast FEW /lpf (0 - 2); Urine Specific Gravity 1.019 (1.001-1.035); Urine WBC 1 /hpf (0 - 3)
--- NOTE | 2019-03-21 19:15 | NUR ---
Care endorsed to JOSE Bundy, night nurse.
--- NOTE | 2019-03-21 19:40 | NUR ---
OPENING NOTE REPORT RECEIVED FROM DAY SHIFT RN. PATIENT IS A/OX4 RESTING IN BED, WITH AT BEDSIDE. PATIENT ON ROOM AIR, IV NOTED TO LEFT FOREARM 22G INTACT AND PATENT. PHYSICAL ASSESSMENT DONE AT THIS TIME-LUNG SOUNDS CLEAR THROUGHOUT. EDEMA NOTED TO BILATERAL LOWER EXTREMITIES. SKIN ALL INTACT.PATIENT STATES HIS CRUZ TUBING IS BEING PULLED. ASSESSED SITE, CRUZ LARA NOT IN PROPER PLACE. NEW CRUZ LARA PLACED, CRUZ NOW PROPERLY STABILIZED, DRAINING CLEAR DEVIKA COLORED URINE. PATIENT HAS SOME DRIED BLOOD NOTED ON SKIN AROUND PENIS. PATIENT STATES THAT IT WAS FROM INSERTION. NO HEMATURIA NOTED IN TUBING OR BAG. POC DISCUSSED FOR TONIGHT WITH PATIENT AND HIS , ALL QUESTIONS ANSWERED.
[2019-03-21] MEDS ORDERED: CLON0.5T3 PO (20:10)
--- NOTE | 2019-03-21 20:52 | NUR ---
CHANGE IN CONDITION NOTIFIED BY PATIENTS THAT PATIENT IS C/O DIFFICULTY "CATCHING HIS BREATH". ASSESSED PATIENT. RESPIRATIONS AT 36/MIN. SPO2 96% ON ROOM AIR. VITALS: 97.9, HEART RATE 59, RR 36, BP 118/75, SPO2 96%. PATIENT IS A/OX4, ABLE TO ANSWER ALL QUESTIONS. PATIENTS BREATHING IS SHALLOW AND LABORED. PATIENT STATES HE IS UNABLE TO LAY IN BED AND CAN ONLY SIT AT EDGE OF BED COMFORTABLY. WILL PAGE HOSPITALIST TO NOTIFY MD OF PATIENTS LABORED BREATHING AND RESPIRATORY RATE AND WILL PAGE RT.
--- NOTE | 2019-03-21 21:04 | NUR ---
SPOKE WITH HOSPITALIST DR.BUTLER RATLIFF UPDATED ON PATIENT STATUS. NEW ORDER RECEIVED FOR ONE TIME LASIX 40MG IV AND PLACE PATIENT ON BIPAP. MD MADE AWARE LASIX WAS DISCONTINUED BY EARLIER TODAY WELL CURRENT ELEVATED BUN/CREAT. ORDER STILL STANDS. ORDER READ BACK AND VERIFIED. WILL CARRY OUT ORDER.
[2019-03-21] MEDS ORDERED: FUROSEMIDE 40 MG/4 ML VIAL IV ONE (21:15)
[2019-03-21] MEDS: clonazePAM 0.5 MG TAB PO SCH (21:18)
--- NOTE | 2019-03-21 21:39 | NUR ---
PT IN RESPIRATORY DISTRESS WITH INCREASED RR IN 30'S AND WOB. PT PLACED ON BIPAP 12/8, BUR 12, AND 30%. CONTINUOUS POX MONITOR AT BEDSIDE. PT UNABLE TO TOLERATE BIPAP. BIPAP REMOVED AND PLACED ON STANDBY. PT PLACED ON 4L NC. WILL CONTINUE TO MONITOR.
--- NOTE | 2019-03-21 21:41 | NUR ---
ORDER FOR STAT CHEST X RAY RECEIVED AND PLACED BY MD BLAS
--- NOTE | 2019-03-21 21:46 | NUR ---
MD BLAS AT BEDSIDE ASSESSING PATIENT
--- NOTE | 2019-03-21 21:55 | NUR ---
VERBAL ORDER TO UPGRADE PATIENT TO BAM SURVEILLANCE INVESTIGATOR HELEN NOTIFIED
[2019-03-21 22:00] VITALS: BP 118/75
[2019-03-21] MEDS ORDERED: LINEZOLID 600MG/300ML 300 ML IV SCH (22:00)
--- NOTE | 2019-03-21 22:55 | NUR ---
SBAR/REPORT GIVEN TO BAM JOSE MCKEON ALL QUESTIONS ANSWERED. UPDATED ON POC
--- NOTE | 2019-03-21 23:15 | NUR ---
PATIENT TRANSFERRED TO [facility] WITH ALL PERSONAL BELONGINGS, AT BEDSIDE CARE ENDORSED TO BAM JOSE MCKEON TO ASSUME CARE OF PATIENT
[2019-03-21] MEDS ORDERED: FUROSEMIDE 40 MG/4 ML VIAL ONE ×2 (23:20→23:24)
--- NOTE | 2019-03-21 23:20 | NUR ---
CRITICAL ABG RESULTS REPORTED TO MD TOUSSAINT BICARB 3.5 RT ASKED IF BICARB WAS TO BE ADMIN. NO ORDERS FOR BICARB AT THIS TIME. REPEAT ABG ON BIPAP AT 0040
[2019-03-21 23:23] VITALS: BP 122/57
--- NOTE | 2019-03-21 23:25 | NUR ---
Admit to [facility] ROHANRACIEL admitted to [facility] via gurney on cardiac specialist, and portable 02. Patient transferred to bed, connected to unit monitoring and oxygen. Patient's oriented to Delma Piper, primary RN, unit, room, bed, and unit policies regarding patient care and visiting hours. Pt ALOC at this time. All questions and concerns addressed, verbalized understanding. Pt in resp distress, Hi-flow started by RT, code assist immediately called. PA for Hematology at bedside, Sarah POPE.
[2019-03-21] MEDS ORDERED: DEXTROSE 50% SYRINGE 50 ML IV ONE (23:28)
[2019-03-21 23:53] LABS: Hematocrit 37.1 % (41.0-53.0); Hemoglobin 9.7 g/dL (13.5-17.5); Mean Corpuscular Hemoglobin 23.2 pg (28.0-32.0); Mean Corpuscular Hgb Conc. 26.1 g/dL (32.0-36.0); Mean Corpuscular Volume 88.8 fL (80.0-100.0); Red Blood Cells 4.17 10^6/uL (4.5-5.90)
[2019-03-21 23:56] LABS: White Blood Cell 67.4 10^3/uL (4.4-10.8)
[2019-03-21 23:57] LABS: Platelet Count (auto) 2004 10^3/uL (140-450); Red Cell Distribution Width 25.6 % (11.8-14.3)
[2019-03-22] VITALS (43 sets, daily range): BP systolic 60–152; BP diastolic 13–117
--- NOTE | 2019-03-22 00:05 | NUR ---
paged with new WBC 67, no new orders at this time, confirmed pt on antibiotics Invanz.
--- NOTE | 2019-03-22 00:15 | NUR ---
Pt agitated. Michel Cardenas called for clinical safety specialist. Michel cardenas stated they were calling in a MANAGER MARKET RESEARCH. is at bedside but stated she had been here since 8am and that she could not stay all night. RN brought up the possibility of restraints and said no she would stay. RN called michel constantino and she stated she was still having clinical safety specialist come up. remains at bedside. Unable to get temp until now, rectal probe temp connected to monitor is 94.5. ICU contacted to get a bear hugger. Warming light on, blankets applied but pt is frustrated and keeps trying to pull off blankets and Bupap. Pt still very altered. At time of arrival Glucose was 52 and a recheck was 44, D50 1amp given. Lasix 40mg was ordered during code assist from Dr. Silvestre. Hi flow was attempted at first and pt became more altered, Bupap then applied. Will continue to monitor.
[2019-03-22 00:41] LABS: Basophils % (manual) 0 (0.0-2.0); Blast Cells 0; Eosinophils % (manual) 0 (0-7); Promyelocytes % 0; Reactive Lymphocytes 0
[2019-03-22 00:43] LABS: Band Neutrophils % (manual) 27; Lymphocytes % (manual) 15 (10.0-50.0); Metamyelocytes % 2; Monocytes % (manual) 17 (0-12); Myelocytes % 3
[2019-03-22] MEDS ORDERED: FUROSEMIDE 40 MG/4 ML VIAL IV ONE ×2 (00:45→10:00)
[2019-03-22] MEDS ORDERED: DEXTROSE (50%) 50ML SYRG IV ONE ×3 (01:00→10:00)
[2019-03-22] MEDS ORDERED: SODIUM BICARBONATE 8.4 % INJ 50ML VIAL IV ONE ×5 (01:15→07:45)
--- NOTE | 2019-03-22 01:15 | NUR ---
CRITICAL ABG RESULTS REPORTED TO MD TOUSSAINT. RN TO ADMIN 2 AMPS OF BICARB. PT REMAINS ON BIPAP, TEMP 94.1, ALTERED SITTER AT BEDSIDE.
[2019-03-22 01:20] LABS: Albumin 3.2 g/dL (3.4-5.0); BUN/Creatinine Ratio 15.3; Calcium 8.7 mg/dL (8.5-10.1); Magnesium 2.8 mg/dL (1.6-2.6)
[2019-03-22 01:23] LABS: Bilirubin, Total 2.5 mg/dL (0.2-1.0); Total Protein 6.2 g/dL (6.4-8.2)
[2019-03-22 01:49] LABS: Lactic Acid w/Reflex 17.6 mmol/L (0.4-2.0)
--- NOTE | 2019-03-22 01:54 | NUR ---
notified of K+6 and CO2 5, no new orders at this time other than previous phone call of Bicarb 2amp order. Sarah POPE asked RN to inform Dr. Silvestre that she was starting him on NS at 100ml/hr. MD wanted to make sure she was aware of CHF, she was. No other orders at this time. at bedside and states will go home soon, environmental health safety manager also at bedside for assist and to take over when goes home of keeping him calm. Pt has become more restful but still slightly agitated. Will continue to monitor. Bicarb has been given as ordered and NS has been started.
--- NOTE | 2019-03-22 02:33 | NUR ---
Pt being admitted to ICU ROHANRACIEL admitted to ICU via gurney on monitor and storage bin tender, and portable 02. Patient transfered to bed, connected to ICU monitoring and oxygen, and weighed by bedscale. Patient oriented to Shyam Leach RN primary RN, unit, room, bed, and unit policies regarding patient care and visiting hours. All questions and concerns addressed, patient verbalized understanding.
--- NOTE | 2019-03-22 02:38 | NUR ---
New orders to transfer pt to ICU, Pt transported via bed on monitor, RT at bedside for resp support, D50 given for glucose 59 just before transport. It was noted that Invanz was to be started at 1000 in am, in report passed along that perhaps it could be pulled and started earlier. Report given to Gene GARCIA, care endorsed.
[2019-03-22] MEDS ORDERED: ETOMIDATE (2MG/ML) 20ML VIAL IV ONE (02:39)
[2019-03-22] MEDS ORDERED: SUCCINYLCHOLINE CHLORIDE 20 MG/ML 10ML VIAL IV ONE (02:39)
--- NOTE | 2019-03-22 02:40 | NUR ---
TAVON TOUSSAINT AT BED SIDE FOR INTUBATION 0242 20 ETOMIDATE, 100 SUCCINATE 0243 1X INTUBATE 0245 SUCCESSFUL INTUBATION, LUNG SOUNDS HEARD BILATERALLY WITH EVEN CHEST RISE AND FALL. GOOD COLOR RETURN ON SKIN. 0250 RECEIVED VERBAL ORDER FOR PROPOFOL FOR SEDATION AND LEVOPHED FOR POSSIBLE BLOOD PRESSURE MANAGEMENT.
--- NOTE | 2019-03-22 02:40 | NUR ---
MD TOUSSAINT ON PHONE UPDATED ON PATIENT STATUS, INFORMED ABOUT NEED FOR INTUBATION.
--- NOTE | 2019-03-22 02:45 | NUR ---
Noted Chest Xray not done, mult attempts to call xray. Will keep trying.
[2019-03-22] MEDS ORDERED: PROPOFOL 100 ML IV ONE (02:47)
[2019-03-22] MEDS ORDERED: NOREPINEPHRINE 8 MG/250ML KIT 250 ML IV ONE (03:04)
--- NOTE | 2019-03-22 03:10 | NUR ---
LEVO STARTED SPB 60'S
--- NOTE | 2019-03-22 03:10 | NUR ---
INTERVENTIONS RIGHT NGT PLACED. ASPIRATED AND AUSCULTATED FOR PROPER PLACEMENT PLACED ON BORA HUGGER WARMING BLANKET FOR RECTAL TEMP OF 95.5'F RIGHT 20G EJ STARTED BY KAYLA GARCIA
[2019-03-22] MEDS ORDERED: VASOPRESSIN 20 UNIT/ML ONE (03:39)
--- NOTE | 2019-03-22 03:39 | NUR ---
CRITICAL ABG RESULTS REPORTED TO MD TOUSSAINT. JOSE CRAWFORD OBTAINING ORDERS FOR BICARB. WILL MONITOR CLOSELY.
[2019-03-22] MEDS ORDERED: SODIUM BICARBONATE 8.4% INJ 50ML SYRINGE ONE ×2 (03:40)
--- NOTE | 2019-03-22 03:40 | NUR ---
SPOKE WITH MD BREANA CERRATO RESULTS ODER FOR VASOPRESSIN, 3 AMP BICAB PUSH AND TO START 2 AMP BICARB DRIP @ 125/HR
--- NOTE | 2019-03-22 04:13 | NUR ---
PAGED HOSPITALIST VASOPRESSIN AND LEVOPHED MAXED. RECEIVED ORDER FOR FANNIE AND EPI, WILL KEEP ON STANDBY
[2019-03-22] MEDS ORDERED: NOREPINEPHRINE 8 MG/250ML KIT 250 ML IV SCH (04:31)
[2019-03-22] MEDS ORDERED: PROPOFOL 100 ML IV SCH (04:31)
[2019-03-22] MEDS ORDERED: EPINEPHrine HCL 250 ML IV SCH (04:31)
[2019-03-22] MEDS ORDERED: PHENYLEPHRINE IV 250 ML IV ONE ×4 (04:41→10:38)
[2019-03-22] MEDS: SODIUM BICARBONATE 50ML VIAL 100 ML in SOD CHL 0.45% 1,000 ML IV SCH ×2 (04:45→07:03)
[2019-03-22] MEDS ORDERED: VASOPRESSIN 50 UNITS in D5W 5% 247.5 ML IV SCH (04:45)
[2019-03-22] MEDS: PHENYLEPHRINE INJ 20 MG in SODIUM CHL 0.9% 250 ML IV SCH ×4 (04:54→10:40)
[2019-03-22] MEDS: HYDROXYUREA 500 MG CAP PO SCH (06:00)
--- NOTE | 2019-03-22 06:46 | NUR ---
Respiratory note: RECEIVED PATIENT ON RENTAL V200 VENT ORALLY INTUBATED WITH AN 8.0 ETT SECURED VIA REJI AT THE 22CM MARKING AT THE LIP, AND MECHANICALLY VENTILATED WITH THE CHARTED SETTINGS. SPO2 100%, LUNG SOUNDS CLEAR/DIM T/O, NO SECRETIONS WHEN SUCTIONED. SKIN IS WARM/DRY TO THE TOUCH AND IS INTACT NEAR REJI SITE. THERE IS A NGT IN THE RIGHT NARE AND IS SECURED TO THE ETT, NO ADVANCE ACCESS LINES OR CENTRAL LINES NOTED. PATIENT IS UNRESPONSIVE TO BOTH VERBAL/TACTILE STIMULI AND IS OFF ALL SEDATION. HE IS RESTING COMFORTABLY AND TOLERATING VENT WELL, FIO2 DECREASED TO 40% AT THIS TIME, RN ROYA MADE AWARE OF CHANGE. VENT PLUGGED INTO RED OUTLET AND ALL ALARMS ARE SET AND AUDIBLE. WILL CONTINUE TO ASSESS PATIENT WELL VENTILATOR FUNCTION.
--- NOTE | 2019-03-22 07:30 | NUR ---
RECEIVED REPORT/ ASSUMED PATIENT CARE PATIENTS AT BEDSIDE FOR ASSESSMENT. PATIENT ON MECHANICAL VENTILATOR, NO SEDATION AND 4 VASOPRESSORS AT MAX RATES, INFUSING THROUGH PERIPHERAL IV LINES. BEAR HUGGER IN PLACE RECTAL TEMPERATURE LOW. SEE ASSESSMENT IN INTERVENTIONS
[2019-03-22] MEDS ORDERED: SODIUM BICARBONATE 50ML VIAL 150 ML in D5W 5% 1,000 ML IV SCH (07:45)
[2019-03-22] MEDS ORDERED: DOPamine 1600MCG/ML D5W 250 ML IV ONE (07:54)
--- NOTE | 2019-03-22 08:00 | NUR ---
TURNING HELD- UNSTABLE HEMODYNAMICS
--- NOTE | 2019-03-22 08:04 | NUR ---
PAGED DR PATRICK AT PATIENTS CANDYS REQUEST AWAITING RETURN CALL
--- NOTE | 2019-03-22 08:20 | NUR ---
IV insertion IV access obtained, via clean sterile technique by inserting 20 gauge catheter at RIGHT WRIST after 1 attempt(s). IV secured properly. No trauma to site. Patient tolerated well. NOTE: REMOVED LEFT FA 22 G.
[2019-03-22] MEDS ORDERED: DOPamine 1600MCG/ML D5W 250 ML IV SCH (08:27)
--- NOTE | 2019-03-22 08:30 | NUR ---
SPOKE WITH DR PATRICK UPDATED ON CURRENT STATUS, MD STATES WILL COME TO ASSESS
[2019-03-22 09:17] LABS: Hematocrit 31.4 % (41.0-53.0); Hemoglobin 8.7 g/dL (13.5-17.5); Mean Corpuscular Hemoglobin 24.1 pg (28.0-32.0); Mean Corpuscular Hgb Conc. 27.6 g/dL (32.0-36.0); Mean Corpuscular Volume 87.3 fL (80.0-100.0)
[2019-03-22 09:18] LABS: Red Cell Distribution Width 25.3 % (11.8-14.3)
[2019-03-22 09:21] LABS: White Blood Cell 74.8 10^3/uL (4.4-10.8)
[2019-03-22 09:22] LABS: Platelet Count (auto) 1348 10^3/uL (140-450)
[2019-03-22 09:23] LABS: Basophils % (manual) 0 (0.0-2.0); Blast Cells 0; Eosinophils % (manual) 0 (0-7); Promyelocytes % 0; Reactive Lymphocytes 0
[2019-03-22 09:36] LABS: Albumin 2.4 g/dL (3.4-5.0); BUN/Creatinine Ratio 13.3; Calcium 7.4 mg/dL (8.5-10.1)
[2019-03-22 09:40] LABS: Bilirubin, Total 2.9 mg/dL (0.2-1.0); Total Protein 4.9 g/dL (6.4-8.2)
--- NOTE | 2019-03-22 09:40 | NUR ---
DR PATRICK AT BEDSIDE DISCUSSED PATIENT STATUS AND PLAN OF CARE WITH PATIENTS .
[2019-03-22 09:47] LABS: Potassium 6.7 mmol/L (3.5-5.1)
--- NOTE | 2019-03-22 09:50 | NUR ---
CALLED AND SPOKE WITH DR PATRICK REGARDING CRITICAL LAB VALUES NEW ORDERS PLACED
--- NOTE | 2019-03-22 09:55 | NUR ---
PAGED DR PIERCE AT DR CASTRO REQUEST
[2019-03-22] MEDS ORDERED: LINEZOLID 600MG/300ML 300 ML IV SCH (10:00)
[2019-03-22] MEDS: FLUCONAZOLE 200MG/100ML 100 ML IV SCH ×4 (10:00→11:30)
[2019-03-22] MEDS ORDERED: ERTAPENEM SOD INJ 1 GM in SODIUM CHL 0.9% 50 ML IV SCH (10:00)
[2019-03-22] MEDS: FEBUXOSTAT 40MG TAB PO SCH (10:00)
[2019-03-22] MEDS ORDERED: CALCIUM GLUC 4.65meq/50ml D5AE 50 ML IV ONE (10:00)
[2019-03-22] MEDS ORDERED: DEXTROSE 10% 1,000 ML IV ONE (10:00)
[2019-03-22] MEDS ORDERED: ALBUTEROL SULF 2.5 MG/0.5ML(0.5%) NEB SOLN NEB ONE ×2 (10:00→12:45)
[2019-03-22] MEDS ORDERED: SODIUM ZIRCONIUM CYCL 10 GM PAK PO ONE (10:00)
[2019-03-22] MEDS ORDERED: PANTOPRAZOLE 40 MG/10 ML VIAL INJ IV SCH ×2 (10:00)
[2019-03-22] MEDS ORDERED: SODIUM CHLORIDE 0.9% 500 ML IV ONE (10:00)
[2019-03-22 10:10] LABS: Band Neutrophils % (manual) 13; Lymphocytes % (manual) 5 (10.0-50.0); Metamyelocytes % 2; Monocytes % (manual) 5 (0-12); Myelocytes % 2
--- NOTE | 2019-03-22 10:30 | NUR ---
SPOKE WITH DR DANIELS UPDATED ON CURRENT STATUS, REVIEWED LABS. NO NEW ORDERS AT THIS TIME
[2019-03-22] MEDS ORDERED: ATROPINE SULFATE 1 MG/1 ML VIAL ONE (11:49)
[2019-03-22] MEDS ORDERED: ATROPINE SULFATE 0.4 MG/1 ML VIAL ONE (11:49)
--- NOTE | 2019-03-22 11:50 | NUR ---
DECREASING HEART RATE PATIENTS HEART RATE V PACED, DECLINED TO MID 500S. WEAK THREADY CAROTID PULSE PALPATED AND DOPPLER FEMORAL PULSE OBTAINED. 0.5MG ATROPINE IV PUSHED. RN AT BEDSIDE. WILL CONTINUE TO MONITOR
--- NOTE | 2019-03-22 12:10 | NUR ---
DECREASING HEART RATE- 45BPM ADMINISTERED 0.5MG ATROPINE IV PUSH. RN AT BEDSIDE
[2019-03-22 12:19] LABS: INR > 8.0 (0.9-1.15)
--- NOTE | 2019-03-22 12:24 | NUR ---
CODE STATUS- DNR PATIENTS AND SON AT BEDSIDE. DISCUSSING PATIENTS CURRENT STATUS WITH RN. FAMILY WISHES TO CURRENT TREATMENT BUT NO CPR OR DEFIBRILLATION. NOTIFIED DR PATRICK. CODE STATUS FORM UPDATED AND IN PATIENTS CHART
[2019-03-22] MEDS ORDERED: SODIUM CHLORIDE 0.9% 1,000 ML IV ONE (12:45)
--- NOTE | 2019-03-22 13:10 | NUR ---
PRONOUNCEMENT OF REQUESTED BY DR. PATRICK TO PRONOUNCE PT. PT FOUND PULSELESS AND APNEIC. ASYSTOLE IN 3 LEADS. ABSENCE OF ALL REFLEXES. AFTER ONE FULL MINUTE OF AUSCULTATION, NO PULSE OR RESPIRATIONS. TOD 1319
--- NOTE | 2019-03-22 13:18 | NUR ---
[facility] NOTIFIED AND RELEASED- R [phone]
--- NOTE | 2019-03-22 13:25 | NUR ---
[facility] OFF[facility] CALLED AND NOTIFIED. AWAITING RETURN CALL
--- NOTE | 2019-03-22 14:18 | NUR ---
TIMBER POISONER RASHID ROBISON CALLED, RELEASED CASE # [phone]
--- NOTE | 2019-03-22 19:18 | NUR ---
POST MORTEM CARE COMPLETED. FAMILY WISHING BODY BE HELD IN OUR FACILITY WHEN THEY ARRANGE WITH MORTUARY.
[2019-03-24 17:35] LABS: Folate (Folic Acid) 11.41 ng/mL (5.38-24)
== END 2019-03-22 21:24 | disposition expired | DRG 871 ==
LOC: ER 10:58 → TELE 10:59 → TELE-CENTR 22:03 → DOU IN ICU 03-21 23:19 → ICU WEST 03-22 03:05
PROVIDERS: ADMIT Internal Medicine; ATTEND Internal Medicine
PROC: 5A09357 Assistance with Respiratory Ventilation, Less than 24 Consecutive Hours, Continuous Positive Airway Pressure (ICD-10-PCS; principal; 2019-03-21)
PROC: 5A09357 Assistance with Respiratory Ventilation, Less than 24 Consecutive Hours, Continuous Positive Airway Pressure (ICD-10-PCS; 2019-03-22)
PROC: 5A1935Z Respiratory Ventilation, Less than 24 Consecutive Hours (ICD-10-PCS; 2019-03-22)
PROC: 0BH17EZ Insertion of Endotracheal Airway into Trachea, Via Natural or Artificial Opening (ICD-10-PCS; 2019-03-22)
DX: A41.9 Sepsis, unspecified organism (principal); N17.0 Acute kidney failure with tubular necrosis; R65.21 Severe sepsis with septic shock; J96.00 Acute respiratory failure, unspecified whether with hypoxia or hypercapnia; K72.00 Acute and subacute hepatic failure without coma; I50.43 Acute on chronic combined systolic (congestive) and diastolic (congestive) heart failure; I47.2 Ventricular tachycardia; L03.115 Cellulitis of right lower limb; I11.0 Hypertensive heart disease with heart failure; R33.9 Retention of urine, unspecified; I50.82 Biventricular heart failure; D50.9 Iron deficiency anemia, unspecified; D47.3 Essential (hemorrhagic) thrombocythemia; M10.9 Gout, unspecified; E87.5 Hyperkalemia; E78.5 Hyperlipidemia, unspecified; I48.91 Unspecified atrial fibrillation; K57.90 Diverticulosis of intestine, part unspecified, without perforation or abscess without bleeding; N28.1 Cyst of kidney, acquired; R16.0 Hepatomegaly, not elsewhere classified; I07.1 Rheumatic tricuspid insufficiency; R73.9 Hyperglycemia, unspecified; Z23 Encounter for immunization; Z95.0 Presence of cardiac pacemaker; Z88.2 Allergy status to sulfonamides; Z79.82 Long term (current) use of aspirin; Z79.899 Other long term (current) drug therapy; Z80.1 Family history of malignant neoplasm of trachea, bronchus and lung; Z86.73 Personal history of transient ischemic attack (TIA), and cerebral infarction without residual deficits; Z87.891 Personal history of nicotine dependence; Z82.49 Family history of ischemic heart disease and other diseases of the circulatory system; Z82.3 Family history of stroke; Z90.49 Acquired absence of other specified parts of digestive tract
CPT/HCPCS: 36415; 36600; 71045; 76705; 78582; 80053; 81001; 82550; 82607; 82668; 82728; 82746; 82805; 82962; 83036; 83540; 83550; 83605; 83615; 83735; 83880; 84443; 84484; 84550; 85007; 85025; 85027; 85045; 85379; 85610; 85652; 85730; 86141; 87070; 87081; 87086; 87205; 93005; 93306; 93970; 94002; 94003; 94640; 94660; 96365; 96375; C9113; G0378; J0171; J0330; J0461; J0610; J0696; J1335; J1450; J1756; J2704; J3490; J7060